=== PATIENT | male | born 1980 | race Caucasian/White ===

== ENCOUNTER 2016-08-01 10:46 | Emergency (ER) | payer OTHER ==
[2016-08-01 10:58] VITALS: BP 117/79; PULSE 60; RESP 16; O2SAT 98
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
[2016-08-01] MEDS ORDERED: HYDR-4003 PO (12:55)
[2016-08-01 13:15] VITALS: BP 112/74; PULSE 77; RESP 12
== END 2016-08-01 13:17 | disposition home or self-care (01) ==
LOC: SED 10:46 → EDSEX 10:46 → EDBD 10:46 → SED 13:17
DX: S93.401A Sprain of unspecified ligament of right ankle, initial encounter (principal); S00.12XA Contusion of left eyelid and periocular area, initial encounter; S80.811A Abrasion, right lower leg, initial encounter; V23.4XXA Motorcycle driver injured in collision with car, pick-up truck or van in traffic accident, initial encounter; Y93.55 Activity, bike riding; Y92.410 Unspecified street and highway as the place of occurrence of the external cause; Y99.8 Other external cause status; M54.2 Cervicalgia; M25.531 Pain in right wrist
CPT/HCPCS: 29125; 71010; 72170; 73110; 73590; 73600; 99284; A4300; G0463